=== PATIENT | male | born 1965 | race Caucasian/White ===

== ENCOUNTER → 2017-02-23 | Outpatient (CLI) | payer MEDICAID ==
[~2017-02-23] MED LIST: KEFLEX500 M1 PO
[2017-02-23 08:15] LABS: LYMPH # 1.8 K/mm3 (0.7-4.5); LYMPH % 34.3 % (10-50)
[2017-02-23 08:31] LABS: HEMOGLOBIN 14.3 g/dL (14.1-18.0)
[2017-02-23 09:32] LABS: BUN 16 mg/dL (7-18)
[2017-02-23 10:08] LABS: GFR (ESTIMATED) 101 ML/MIN (>60)
[2017-02-24 19:28] LABS: AFP, Tumor Marker 91.3 ng/mL (0.0-8.3)
[2017-02-24 20:04] LABS: HBsAg Screen Negative (Negative); Hep A Ab, IgM Negative (Negative); Hep B Core Ab, IgM Negative (Negative); Hep C Virus Ab >11.0 (0.0-0.9)
== END ==
LOC: LAB 07:44
PROVIDERS: Internal Medicine
DX: R06.02 Shortness of breath (principal); R53.83 Other fatigue

== ENCOUNTER → 2017-03-06 | Outpatient (CLI) | payer MEDICAID | LOC: RAD 09:35 | DX: D69.6 Thrombocytopenia, unspecified (principal); R16.0 Hepatomegaly, not elsewhere classified ==